=== PATIENT | male | born 1990 | race Caucasian/White ===

== ENCOUNTER 2020-09-28 14:03 | Outpatient (CLI) | payer BC | END 2020-09-28 14:04 | disposition home or self-care (01) | LOC: CTENTCT 14:03 | PROVIDERS: ATTEND Otolaryngology Plastic Surgery within the Head & Neck | DX: J32.8 Other chronic sinusitis (principal) | CPT/HCPCS: 70486 ==

== ENCOUNTER 2020-11-17 07:05 | Day surgery (SDC) | payer BC ==
[2020-11-16 10:44] VITALS: BMI 21.2
[2020-11-17] MEDS ORDERED: AFRIN NASAL MIST 15 ML BOT ONE ×2 (07:34→08:25)
[2020-11-17] MEDS ORDERED: Lidocaine 1% w/Epinephrine 1:100K 20 ML VIAL ONE (08:25)
[2020-11-17] MEDS ORDERED: EPINEPHrine 1 MG/ML AMP ONE (08:25)
[2020-11-17] MEDS ORDERED: Bacitracin Zinc Ointment 30 gm TUBE ONE (08:25)
[2020-11-17] MEDS ORDERED: Glycopyrrolate 0.2 MG/ML 5 ML SYRINGE ONE (08:26)
[2020-11-17] MEDS ORDERED: Rocuronium Bromide 10 MG/ML (10ML VIAL) ONE (08:26)
[2020-11-17] MEDS ORDERED: Lidocaine 1% PF 5 ML VIAL ONE (08:26)
[2020-11-17] MEDS ORDERED: ePHEDrine 50 MG/ML VIAL ONE (08:26)
[2020-11-17] MEDS ORDERED: PROPOFOL 200 MG/20 ML VIAL ONE (08:26)
[2020-11-17] MEDS ORDERED: Ondansetron PF 4 MG/2 ML Vial ONE (08:26)
[2020-11-17] MEDS ORDERED: Midazolam HCl 2 mg/2 ml Vial ONE (08:31)
[2020-11-17] MEDS ORDERED: Fentanyl 100 MCG/2 ML VIAL ONE (08:31)
[2020-11-17] MEDS ORDERED: traMADol HCl 50 MG TAB ONE (11:28)
[2020-11-17] MEDS ORDERED: cloNIDine 0.1 MG TAB ONE (12:18)
== END 2020-11-17 14:00 | disposition home or self-care (01) ==
LOC: SDC 07:05
PROVIDERS: ATTEND Specialist
PROC: 09BS8ZZ Excision of Right Frontal Sinus, Via Natural or Artificial Opening Endoscopic (ICD-10-PCS; principal; 2020-11-17)
PROC: 099Q8ZZ Drainage of Right Maxillary Sinus, Via Natural or Artificial Opening Endoscopic (ICD-10-PCS; principal; 2020-11-17)
PROC: 09BL8ZZ Excision of Nasal Turbinate, Via Natural or Artificial Opening Endoscopic (ICD-10-PCS; principal; 2020-11-17)
PROC: 099R8ZZ Drainage of Left Maxillary Sinus, Via Natural or Artificial Opening Endoscopic (ICD-10-PCS; principal; 2020-11-17)
PROC: 09SM0ZZ Reposition Nasal Septum, Open Approach (ICD-10-PCS; principal; 2020-11-17)
PROC: 09BT8ZZ Excision of Left Frontal Sinus, Via Natural or Artificial Opening Endoscopic (ICD-10-PCS; principal; 2020-11-17)
DX: J32.9 Chronic sinusitis, unspecified (principal); J34.3 Hypertrophy of nasal turbinates; G47.30 Sleep apnea, unspecified; I10 Essential (primary) hypertension
CPT/HCPCS: J0171; J2250; J2405; J2704; J3010; J3490